=== PATIENT | female | born 1995 | race Caucasian/White ===

== ENCOUNTER 2020-08-25 13:25 | Outpatient (CLI) | payer OTHER, SELFPAY ==
[2020-08-25 14:01] LABS: Hematocrit 37.8 % (37.0-47.0); Hemoglobin 11.6 g/dL (12.0-15.0); Mean Corpuscular HGB Conc 30.7 g/dl (32-36); Mean Corpuscular Hemoglobin 27.7 pg (26-34); Mean Corpuscular Volume 90.2 fl (80-100); Mean Platelet Volume 10.2 fl (7.4-10.4); Platelet Count Result 240 k/mm3 (150-375); Red Blood Count 4.19 M/mm3 (4.2-5.4); Red Cell Distribution Width 13.1 % (11.5-14.5); White Blood Count 7.5 K/mm3 (4.5-10.0)
--- NOTE | 2020-08-25 16:17 | PM.IMHP ---
H&P: HPI History of Present Illness Date/Time: 08/25/20 16:17 [age] year 2 para whose last menstrual period was , EDC is 09/02/2020, presents at 39 weeks gestation for repeat section. She has a 7 week ultrasound confirming dates. Her has been uncomplicated. She is negative for group B strep Chief Complaint: repeat section Review of Systems Review of Systems: All systems reviewed & are unremarkable except as noted in HPI and below PMFSH Family History Family History Son Gastroschisis Social History Social History Substance use: never Gender identity (if verbalized by the patient): Female Spiritual care concerns: No Meds Home Medications and Allergies Allergies Allergy/AdvReac Type Severity Reaction Status Date / Time No Known Allergies Allergy Unverified 12/12/17 10:57 Exam Const: General: no acute distress Eyes: General: appearance normal, both eyes and all related structures Neck: Neck: supple and no JVD Thyroid: thyroid normal Resp: Effort & Inspection: normal respiratory effort Auscultation: clear to auscultation bilaterally Cardio: Rate: regular rate Rhythm: regular rhythm GI: Inspection: non-distended GI Palp: Yes Soft to palpation, No Tenderness to palpation present (GI) and No Guarding due to palpation present (GI) Auscultation: normal bowel sounds : External Female Exam: normal external appearance Speculum Exam - Vagina: normal appearance of the vagina Speculum Exam - Cervix: Cervical os closed Bimanual exam- vagina & uterus: enlarged ( large gravid uterus is present) Skin: General skin exam: no rashes or lesions noted Extrem: General: normal to inspection and no edema Psych: Mental Status: mental status grossly normal Affect: normal affect H&P: Results Labs Labs: Short CBC 08/25/20 Range/Units 13:43 WBC 7.5 (4.5-10.0) K/mm3 Hgb 11.6 L (12.0-15.0) g/dL Hct 37.8 (37.0-47.0) % Plt Count 240 (150-375) k/mm3 Assessment and Plan Additional Plan impression: Term with previous section Plan: Repeat low-transverse section
[2020-08-26 09:26] LABS: Rapid Plasma Reagin Non-Reactive (NonReactive)
== END 2020-08-25 13:26 | disposition home or self-care (01) ==
PROVIDERS: Visit Provider Obstetrics & Gynecology
DX: Z34.93 Encounter for supervision of normal pregnancy, unspecified, third trimester (principal); Z3A.00 Weeks of gestation of pregnancy not specified
CPT/HCPCS: 36415; 85027; 86592; 86850; 86900; 86901

== ENCOUNTER 2020-08-26 04:54 | Inpatient (IN) | payer OTHER, SELFPAY ==
--- NOTE | 2020-08-25 16:17 | HP_ITS ---
This report was moved to the correct visit, [id number], on August 26, 2020. Original report was signed by Dr. Ted Scott on August 25, 2020 at 1620. H&P: HPI History of Present Illness Date/Time: 08/25/20 16:17 [age] year 2 para whose last menstrual period was , EDC is 09/02/2020, presents at 39 weeks gestation for repeat section. She has a 7 week ultrasound confirming dates. Her has been uncomplicated. She is negative for group B strep Chief Complaint: repeat section Review of Systems Review of Systems: All systems reviewed & are unremarkable except as noted in HPI and below PMFSH Family History Family History Son Gastroschisis Social History Social History Substance use: never Gender identity (if verbalized by the patient): Female Spiritual care concerns: No Meds Home Medications and Allergies Allergies Allergy/AdvReac Type Severity Reaction Status Date / Time No Known Allergies Allergy Unverified 12/12/17 10:57 Exam Const: General: no acute distress Eyes: General: appearance normal, both eyes and all related structures Neck: Neck: supple and no JVD Thyroid: thyroid normal Resp: Effort & Inspection: normal respiratory effort Auscultation: clear to auscultation bilaterally Cardio: Rate: regular rate Rhythm: regular rhythm GI: Inspection: non-distended GI Palp: Yes Soft to palpation, No Tenderness to palpation present (GI) and No Guarding due to palpation present (GI) Auscultation: normal bowel sounds : External Female Exam: normal external appearance Speculum Exam - Vagina: normal appearance of the vagina Speculum Exam - Cervix: Cervical os closed Bimanual exam- vagina & uterus: enlarged ( large gravid uterus is present) Skin: General skin exam: no rashes or lesions noted Extrem: General: normal to inspection and no edema Psych: Mental Status: mental status grossly normal Affect: normal affect H&P: Results Labs Labs: Short CBC 08/25/20 Range/Units 13:43 WBC 7.5 (4.5-10.0) K/mm3 Hgb 11.6 L (12.0-15.0) g/dL Hct 37.8 (37.0-47.0) % Plt Count 240 (150-375) k/mm3 Assessment and Plan Additional Plan impression: Term with previous section Plan: Repeat low-transverse section This dictation may have been done utilizing a voice recognition system. Attempts have been made to correct errors. However, there may be uncorrected grammatical, spelling, and recognition errors present. Report Initialized date/time: Ted Shea MD 08/25/201619 Electronically signed by: Ted Shea MD 08/25/201619 [facility]
[2020-08-26] VITALS (54 sets, daily range): BP systolic 112–184; BP diastolic 65–149; PULSE 51–89; RESP 13–18; TEMP 36.3–36.9; O2SAT 96–100; BMI 28.6
--- NOTE | 2020-08-26 05:25 | LDADM ---
This patient, Zulema Terry, was admitted to Labor/Delivery/Recovery 120 on 08/26/20 at 04:54. Plans for labor, pain management and were discussed with patient. Patient/family oriented to hospital policies and general routines including ID bracelet, bed and alarms, visiting hours, pain management, procedures, bathroom and other care routines, personal items, smoking policy, room service/diet and guest tray routines, security routines, and visiting hours. Patient/Family are encouraged to report perceived risks to care and to ask questions if they do not understand what they are told or what they should do. See OBIX for further documentation.
[2020-08-26] MEDS: LACTATED RINGERS 1,000 ML 125 ML IV CONT ×2 (05:32→06:59)
--- NOTE | 2020-08-26 06:09 | WPDHPUPDATE1 ---
History and Physical Update Update Date/Time: 08/26/20 06:09 History and Physical has been reviewed, including an updated exam of the patient. There are NO changes in the patient's condition. Risks, benefits, and alternatives have been discussed and questions answered. Patient agrees to proceed with procedure.
--- NOTE | 2020-08-26 06:20 | WPDANESEPPF ---
Anes - Initial Pre Proc Eval Procedure: Operation Date: 08/26/20 07:30 Proposed Procedures p Repeat Section - Ted Scott MD Date/Time: 08/26/20 06:20 Surgeon: Ted Scott MD Pre Op Diagnosis: Repeat Section Patient Data Age: 25 Gender: F Height: 1.91 m Weight: 104 kg Allergies Allergy/AdvReac Type Severity Reaction Status Date / Time No Known Allergies Allergy Unverified 12/12/17 10:57 Home Medications Medication Instructions Recorded Confirmed Type hydrocodone-acetaminophen 1 tablet PO Q4H PRN #30 tablet 08/26/20 Rx Patient hx anesthesia problems: none Family hx anesthesia problems: none PMFSH Family History Family History Son Gastroschisis Social History Social History Smoking status: Never smoker Second hand tobacco smoke exposure: No Substance use: never Gender identity (if verbalized by the patient): Female Sexual Orientation (if Verbalized by the Patient): Straight or Heterosexual Spiritual care concerns: No Anes - Eval Final PreProcedure Day of Procedure 08/26/20 06:20 Patient weight: overweight Heart: regular rate and rhythm Lungs: clear to auscultation and normal air movement Airway: Mallampati scale class II Neurological: alert and oriented Last oral intake: >/= 8 hours ASA classification: II Emergent: no Anesthetic plan: proceed Anesthesia type and monitoring: regional spinal and standard monitoring Informed Consent: The patient's anesthetic plan and its attendant risks and benefits were discussed with the patient/family/POA. Questions were solicited and answers provided to the satisfaction of the patient/family/POA.
[2020-08-26] MEDS: ceFAZolin 2 GM/D5W 50 ML 2 GM/50 ML BAG IVPB (07:25)
[2020-08-26] MEDS: KETOROLAC 30 MG/ML VIAL (*BKC) IV PUSH (07:58)
--- NOTE | 2020-08-26 08:04 | W.PM.PROC2 ---
Procedure Note - Detailed Date of Procedure 08/26/20 Pre-op Diagnosis Repeat Section Post-op Diagnosis same Procedure Performed Repeat low-transverse section Surgeon Ted Scott MD Anesthesia spinal Indications this is a 25-year-old 2 para 1 with a previous section who declined attempt at vaginal after Caesarean at term Findings male 9 lb 0 oz with Apgars of 8 and 9 at 1 and 5 minutes respectively Description of Procedure the patient was prepped draped and placed in supine position. Under excellent spinal anesthetic the abdomen was Pfannenstiel fashion progressive layers to the fascia. The fascia incised in upward outward fashion bilaterally. The underlying muscles sharply dissected parietal peritoneum elevated Starla clamp. This was carried superiorly then inferiorly bladder. Bladder blade placed bladder flap formed bladder blade returned. Low-transverse incision made the head delivered in the SYEDA position. Nuchal cord noted be loose x1 review normal occiput. Anterior posterior shoulder delivered spontaneously. Cord mm stone 2 and cut passed off the table with an excellent cry placenta delivered intact manually. Uterus delivered on the abdomen. After inspecting the anterior of the uterus and noting no debris, the uterus was closed with continuous running 0 Vicryl followed by a 2nd imbricating running 0 Vicryl. The ovaries and tubes appeared within normal limits. The uterine incision was dry. The uterus was returned to the abdomen. Remaining clots and fluid in abdomen were removed. The uterine incision inspected 1 last time and noted be hemostatic. The laps were removed and accounted for. The fascia closed with continuous running 0 Vicryl from lateral edge to midline bilaterally. Irrigation of the subcutaneous layer and the skin closed with 4 O Monocryl and glue. Q BL was 325. All sponge, needle, instrument counts were correct. There were no immediate complications Estimated Blood Loss 325 Drains No Packing No Pathology none sent Complications No immediate complications Condition stable Disposition floor
[2020-08-26] MEDS: diphenhydrAMINE HCl INJ 50 MG/ML VIAL 12.5 MG IV PUSH (09:13)
--- NOTE | 2020-08-26 10:25 | PC.NURSE ---
Patient transferred to post room # 282 per stretcher. Support person present. Oriented to unit, room, information board, rooming in, admission packet and security measures. Patient verbalizes understanding.
--- NOTE | 2020-08-26 12:05 | PC.NURSE ---
Consult with pt., mother reports this is 2nd child to breastfeed. Mother breastfed first child for several months without issue. Infant eagerly fed for first feeding without difficulties or discomfort. Requested mother call out next feeding for observation.
[2020-08-26] MEDS: DEXTROSE 5%/0.45% SOD CHL 1,000 ML 125 ML IV CONT (13:23)
[2020-08-26] MEDS: SIMETHICONE 80 MG TAB.CHEW PO (13:23)
[2020-08-26] MEDS: HYDROcodone/acetaminophen (*CRX) 10-325 MG TABLET 1 TAB PO ×3 (13:23→22:22)
[2020-08-26] MEDS: diphenhydrAMINE HCl INJ 50 MG/ML VIAL (13:24)
[2020-08-26] MEDS: DOCUSATE SODIUM 100 MG CAPSULE PO (19:19)
[2020-08-26] MEDS: IBUPROFEN 600 MG TABLET PO (19:19)
[2020-08-27] VITALS: BP 119/65; PULSE 80; RESP 16; TEMP 36.9; O2SAT 98
[2020-08-27] MEDS: IBUPROFEN 600 MG TABLET PO ×3 (03:42→21:54)
[2020-08-27 03:50] VITALS: BP 115/81; PULSE 81; RESP 16; TEMP 36.5; O2SAT 99
[2020-08-27 04:53] LABS: Basophils Percent Auto 0.3 % (0.2-1.2); Eosinophils Absolute Auto 0.2 K/mm3 (0-0.3); Eosinophils Percent Auto 1.7 % (0-4.4); Hematocrit 32.2 % (37.0-47.0); Hemoglobin 10.1 g/dL (12.0-15.0); Immature Granulocyte Absolute 0.06 K/mm3 (0.00-0.031); Immature Granulocyte Percent A 0.6 % (0-0.5); Lymphocytes Percent Auto 16.8 % (18.3-44.2); Mean Corpuscular HGB Conc 31.4 g/dl (32-36); Mean Corpuscular Hemoglobin 27.9 pg (26-34); Mean Platelet Volume 10.6 fl (7.4-10.4); Monocytes Percent Auto 9.4 % (2.6-8.5); Neutrophils Absolute Auto 7.2 K/mm3 (1.3-6.7); Neutrophils Percent Auto 71.2 % (45.5-73.1); Platelet Count Result 222 k/mm3 (150-375); Red Blood Count 3.62 M/mm3 (4.2-5.4); White Blood Count 10.1 K/mm3 (4.5-10.0)
--- NOTE | 2020-08-27 06:15 | PM.OBPNVD ---
OB - PN: Subj Subjective Date/time seen: 08/27/20 06:15 Patient comments: no complaints and pain well controlled baby status: doing well and nursing well OB - PN: Obj Data Labs CBC & Chem 7: 08/27/20 03:47 Labs: Laboratory Results - last 24 hr 08/27/20 03:47 WBC 10.1 H RBC 3.62 L Hgb 10.1 L Hct 32.2 L MCV 89.0 MCH 27.9 MCHC 31.4 L RDW 13.0 Plt Count 222 MPV 10.6 H Immature Gran % (Auto) 0.6 H Neut % (Auto) 71.2 Lymph % (Auto) 16.8 L [place] % (Auto) 9.4 H Eos % (Auto) 1.7 Baso % (Auto) 0.3 Lymph # (Auto) 1.70 [place] # (Auto) 1.0 H Eos # (Auto) 0.2 Baso # (Auto) 0.0 Abs Immat Gran (auto) 0.06 H Absolute Neuts (auto) 7.2 H Absolute Nucleated RBC 0.0 Nucleated RBC % 0.0 OB - PN A/P Plan day: 1 Plan: routine care Time Spent With Patient Time: Total time spent is greater than 50% in coordination of care (as documented) at patient's floor/unit and/or counseling patient: Time with patient: less than 15 minutes Review of Systems Review of Systems: All systems reviewed & are unremarkable except as noted in HPI and below Exam Const: General: no acute distress Eyes: General: appearance normal, both eyes and all related structures Neck: Neck: supple and no JVD Thyroid: thyroid normal Resp: Effort & Inspection: normal respiratory effort Auscultation: clear to auscultation bilaterally Cardio: Rate: regular rate Rhythm: regular rhythm GI: Inspection: normal to inspection and incision (cdi) : General: Yes bladder normal to palpation External Female Exam: normal external appearance Speculum Exam - Vagina: normal vaginal discharge and No vaginal bleeding Speculum Exam - Cervix: nontender Bimanual exam- vagina & uterus: bladder normal to palpation and No Cervical tenderness present OB/external & speculum: No vaginal bleeding Skin: General skin exam: no rashes or lesions noted Extrem: General: normal to inspection and no edema Psych: Mental Status: mental status grossly normal Affect: normal affect
[2020-08-27] MEDS: SIMETHICONE 80 MG TAB.CHEW PO (08:00)
[2020-08-27] MEDS: DOCUSATE SODIUM 100 MG CAPSULE PO (08:00)
[2020-08-27] MEDS: HYDROcodone/acetaminophen (*CRX) 5-325 MG TABLET 1 TAB PO ×3 (08:06→21:54)
--- NOTE | 2020-08-27 08:55 | WPDANLDPN2 ---
Anes-Prog Note L&D Date/Time: 08/27/20 08:55 Comfortable throughout: section Neuraxial method: spinal Epidural/Spinal procedure site: clean & non-tender Neuro status: Neuro function grossly intact. Cardiovascular status: normal Respiratory status: normal Airway patency: baseline Mental status: baseline Post-Op hydration status: normal Vital Signs: Last Vital Signs Temp 36.5 C 08/27/20 03:50 Pulse 81 08/27/20 03:50 Resp 16 08/27/20 03:50 BP 115/81 08/27/20 03:50 Pulse Ox 99 08/27/20 03:50 Pain score (VAS): 02/21 I/O: Intake & Output 08/26/20 08/27/20 08/27/20 23:59 07:59 15:59 Intake Total 2250 Output Total 2550 2500 Balance -300 -2500 Post-procedural complaints: none Patient feedback: Patient satisfied with anesthetic care.
--- NOTE | 2020-08-27 08:56 | WPDANLDNPN2 ---
Anes-Prog Note L&D-Neuraxial Date/Time: 08/27/20 08:56 Neuraxial medications: intrathecal PF morphine Opiod-related complaints: none Patient feedback: Patient satisfied with post-operative pain management.
[2020-08-27 09:10] VITALS: BP 123/79; PULSE 81; RESP 18; TEMP 36.2; O2SAT 100
--- NOTE | 2020-08-27 12:40 | PC.NURSE ---
Upon entering mother has latched deeply to breast in cradle. Infant nursed eagerly, with steady draws and occasional swallowing noted. Reviewed signs of a correct latch, effective nursing and suck swallow ratio. was able to maintain latch without discomfort to mother. Reviewed infant feeding cues, frequencies, duration of feedings, feeding elimination flow sheet, and signs of adequate intake. Nipple care reviewed. Instructed mother to call out for RN assistance if she is unable to latch for feeding or she has discomfort with nursing. Instructed feeding should be initiated three hours from start of last feeding or if feeding cues are noted before. Mother voiced understanding of information shared.
[2020-08-27 21:30] VITALS: BP 125/78; PULSE 86; RESP 18; TEMP 36.4; O2SAT 100
--- NOTE | 2020-08-27 21:30 | PC.NURSE ---
Patient viewed the discharge video Mother & Baby Care, The First Two Weeks online. Patient was given the opportunity and encouraged to ask questions. Patient verbalized understanding of information shared and has been given the mother/baby guide for home reference.
[2020-08-28 08:20] VITALS: BP 131/90; PULSE 97; RESP 18; TEMP 36.6; O2SAT 100
[2020-08-28] MEDS: MULTIVIT/MIN/PREN/FOL AC/IRON TABLET 1 TAB PO (08:42)
[2020-08-28] MEDS: IBUPROFEN 600 MG TABLET PO (08:43)
[2020-08-28] MEDS: DOCUSATE SODIUM 100 MG CAPSULE PO (08:43)
[2020-08-28] MEDS: TETANUS,DIPHTHERIA,AC PERTUSSIS ADULT (0.5 ML) BOOSTRIX IM (08:44)
[2020-08-28] MEDS: HYDROcodone/acetaminophen (*CRX) 5-325 MG TABLET 1 TAB PO (08:47)
--- NOTE | 2020-08-28 10:29 | PM.OBPNVD ---
OB - PN: Subj Subjective Date/time seen: 08/28/20 10:29 Narrative: Pain OK. Tolerating diet. Would like to go home. OB - PN: Obj Data Labs CBC & Chem 7: 08/27/20 03:47 OB - PN A/P Plan Comments: A: POD#2, doing well. P: Home to f/u 4 weeks. Exam Narrative: Exam Narrative: AVSS ABD soft, nontender, fundus firm. Incision c/d/i. EXT nontender
[2020-08-31 11:05] VITALS: BP 147/86; PULSE 105; RESP 22; TEMP 36.8; O2SAT 100
--- NOTE | 2020-09-11 08:25 | PM.DS ---
DS: Admitting Diagnosis Admitting Diagnosis term iup/prev section DS: Summary Hospital Course Hospital Course: term iup. repeat section, unremarkable course Time Spent with Patient Time attestation: Total time spent providing and/or coordinating discharge services: Exam Const: General: no acute distress Eyes: General: appearance normal, both eyes and all related structures Neck: Neck: supple and no JVD Thyroid: thyroid normal Resp: Effort & Inspection: normal respiratory effort Auscultation: clear to auscultation bilaterally Cardio: Rate: regular rate Rhythm: regular rhythm GI: Inspection: non-distended GI Palp: Yes Soft to palpation, No Tenderness to palpation present (GI) and No Guarding due to palpation present (GI) Auscultation: normal bowel sounds : General: Yes bladder normal to palpation External Female Exam: normal external appearance Speculum Exam - Vagina: normal vaginal discharge and No vaginal bleeding Speculum Exam - Cervix: nontender Bimanual exam- vagina & uterus: bladder normal to palpation and No Cervical tenderness present OB/external & speculum: No vaginal bleeding Skin: General skin exam: no rashes or lesions noted Extrem: General: normal to inspection and no edema Psych: Mental Status: mental status grossly normal Affect: normal affect Discharge Plan Discharge Attending physician on discharge: Ted Scott Consulting providers: Nikolas Ortiz Discharging Clinician: Ted Scott Patient Disposition: Home, Self-Care Activity: may shower, no straining and pelvic rest Diet: heart healthy Wound Care Instructions: follow printed instructions Discharge Instructions: Call or return if temperature above 100.4? F, increased abdominal pain, increased vaginal bleeding or any new problems. Education: Mom and Baby Guide Given to: Mother Follow-Up: Call your delivering provider's office for an appointment to be seen in: 4 Weeks Mom and baby should come to the [facility] for the follow-up appointment. Appointment Date/Time: August 31, 2020 at 11:00 am What to expect at your follow-up visit: Physical Assessment Call [phone] if you are unable to keep your appointment time. BREAST CARE: * Wear a snug supportive bra. * For engorgement discomfort: Breast Feeding: * Apply warm moist washcloths * Express milk as needed to relieve engorgement * Wear loose clothing * For sore nipples: * Identify correct latch-on * Apply warm moist washcloths before and after nursing * Air dry nipples after nursing * May apply Lansinoh cream to nipples ABDOMINAL INCISION: (if applicable) * Allow incision to air dry * Do NOT use lotions for powders on your incision * When showering, allow soap and water to run over the incision, but do not wash incision EPISIOTOMY/PERINEAL CARE: * Until bleeding stops, use your char bottle after urinating * Change your pad frequently throughout the day * No tub baths until seen by your physician - You may shower ACTIVITY: * Rest as much as possible. * Do not exercise or lift anything heavier than your baby (such as laundry or other children.) * Avoid stairs or driving as much as possible. * Do not put anything into the vagina. No douching, tampons, or sexual activity until seen by physician. NOTIFY PHYSICIAN IF YOU HAVE ANY QUESTIONS OR IF ANY OF THE FOLLOWING SYMPTOMS OCCUR: * If your incision becomes red, swollen, or more painful than what you have experienced in the hospital. * If your vaginal bleeding becomes foul smelling. * If your vaginal bleeding becomes more heavy than a period or if your bleeding changes from pink to bright red. However, you may pass an occasional walnut-sized clot once or twice for the first week . * If you experience a sharp, shooting pain in you calves. * If you discover a hard,
== END 2020-08-28 15:17 | disposition home or self-care (01) | DRG 788 ==
LOC: ANHOB2 08-28 14:25 → ANHLDR 08-31 10:42 → ANHOB2 08-31 10:42
PROVIDERS: Admitting Provider Obstetrics & Gynecology; Visit Provider Obstetrics & Gynecology
PROC: 10D00Z1 Extraction of Products of Conception, Low, Open Approach (ICD-10-PCS; CPT 59514; principal; 2020-08-26 07:30)
DX: O34.211 Maternal care for low transverse scar from previous cesarean delivery (principal); Z37.0 Single live birth; Z3A.39 39 weeks gestation of pregnancy; O69.81X0 Labor and delivery complicated by cord around neck, without compression, not applicable or unspecified
CPT/HCPCS: 36415; 85025; 85027; 86592; 86850; 86900; 86901; 90715; A9270; J0131; J0690; J1200; J1885; J2274; J2405; J2590; J7120